=== PATIENT | male | born 1940 | race Caucasian/White ===

== ENCOUNTER 2017-04-17 17:44 | Observation (INO) | payer MEDICARE ==
[~2017-04-17] VITALS: Ht 172.7 cm; Wt 87.8 kg
[2017-04-17] VITALS (7 sets, daily range): BP systolic 84–131; BP diastolic 54–80; PULSE 72–100; RESP 18–20; TEMP 97.4–98.3; O2SAT 94–96
[2017-04-17] MEDS ORDERED: ATOR10TA15 PO (17:58)
[2017-04-17] MEDS ORDERED: AMLO5TAB2 PO (17:58)
[2017-04-17] MEDS ORDERED: CARV6.252 PO (17:58)
[2017-04-17] MEDS ORDERED: COUM5TAB PO (17:58)
[2017-04-17] MEDS ORDERED: ASPI81CH37 CHEW (17:58)
[2017-04-17] MEDS ORDERED: LISI2.5T3 PO (17:58)
[2017-04-17] MEDS ORDERED: SODIUM CHLORIDE 0.9% FLUSH 10 ML FLUSH IVF PRN (18:00)
--- NOTE | 2017-04-17 18:00 | PD ---
HPI Chief Complaint: Syncope/Near-Syncope Time Seen by Provider: 17:53 Travel History International Travel<30 days: No Contact w/Intl Traveler<30days: No Traveled to known affect area: No History of Present Illness HPI This is a 77 year old gentleman with history of atrial fibrillation, hyperlipidemia, who presents after having a near syncopal episode. The patient was out in the yard with his family. He is visiting here for his grandchildren' s graduation constitution party. He apparently started feeling clammy and sweaty and went inside and the symptoms did not resolve. He became extremely diaphoretic and felt as though he was given a pass out. 911 was all that and when they arrived , they found him in A. fib with rapid ventricular response. His heart rate was reportedly in the 130s and 140s. Paramedics delivered 20 mg of Cardizem and his rate rapidly went down into the 60s and 70s. The patient stated he felt much improved. They also gave him 1 L of IV fluid. He currently takes carvedilol and Coumadin as well as atorvastatin. The patient denied any chest pain, chest pressure. He stated he felt short of breath and clammy and lightheaded. [facility] Social History Tobacco Use: No Allergies-Medications (Allergen,Severity, Reaction): Coded Allergies: No Known Allergies (Unverified , 04/17/17) Reported Meds & Prescriptions Reported Meds & Active Scripts Active Reported Amlodipine (Amlodipine Besylate) 5 Mg Tab 5 Mg PO DAILY Lisinopril 2.5 Mg Tab 2.5 Mg PO DAILY Aspirin Low Dose (Aspirin) 81 Mg Chew 81 Mg CHEW DAILY Carvedilol 6.25 Mg Tab 6.25 Mg PO BID Atorvastatin (Atorvastatin Calcium) 10 Mg Tab 10 Mg PO HS Coumadin (Warfarin) 5 Mg Tab 5 Mg PO DAILY Review of Systems Except as stated in HPI: all other systems reviewed are Neg General / Constitutional: No: Fever, Chills HENT: No: Headaches, Lightheadedness, Neck Pain Cardiovascular: Positive: Palpitations, Irregular Rhythm, No: Chest Pain or Discomfort Respiratory: Positive: Shortness of Breath, No: Cough Gastrointestinal: No: Nausea, Vomiting, Abdominal Pain Musculoskeletal: Positive: Weakness (generalized during the episode), No: Pain Neurologic: Positive: Weakness (generalized during the episode), Dizziness ( during the episode, none now), No: Headache, Change in Mentation Physical Exam Narrative GENERAL: Well-developed well-nourished gentleman in no acute respiratory distress. SKIN: Focused skin assessment warm/dry. HEAD: Atraumatic. Normocephalic. EYES: No scleral icterus. No injection or drainage. ENT: No nasal bleeding or discharge. Mucous membranes pink and moist. NECK: Trachea midline. Supple CARDIOVASCULAR: Irregularly irregular with a rate in the 60s. No obvious murmurs appreciated. RESPIRATORY: No accessory muscle use. Clear to auscultation. Breath sounds equal bilaterally. GASTROINTESTINAL: Abdomen soft, non-tender, nondistended. MUSCULOSKELETAL: No obvious deformities. No clubbing. No cyanosis. No edema. NEUROLOGICAL: Awake and alert. No obvious cranial nerve deficits. Motor grossly within normal limits. Normal speech. PSYCHIATRIC: No delusional thought processes. No hallucinations. Data Data Last Documented VS Vital Signs Date Time Temp Pulse Resp B/P Pulse Ox O2 Delivery O2 Flow Rate FiO2 04/17/17 18:20 72 18 91/61 94 Room Air 84/54 04/17/17 18:07 98.3 Orders Electrocardiogram (04/17/17 17:53) Basic Metabolic Panel (Bmp) (04/17/17 17:53) Ckmb (Isoenzyme) Profile (04/17/17 17:53) Complete Blood Count With Diff (04/17/17 17:53) Magnesium (Mg) (04/17/17 17:53) Prothrombin Time / Inr (Pt) (04/17/17 17:53) Act Partial Throm Time (Ptt) (04/17/17 17:53) Troponin I (04/17/17 17:53) Chest, Single Ap (04/17/17 17:53) Ecg Monitoring (04/17/17 17:53) Bilateral Bp Monitoring (04/17/17 17:53) Iv Access Insert/Monitor (04/17/17 17:53) Oximetry (04/17/17 17:53) Oxygen Administration (04/17/17 17:53) Sodium Chloride 0.9% Flush (Ns Flush) (04/17/17 18:00) Admit Order (Ed Use Only) (04/17/17 18:54) CKMB (04/17/17 18:00) CKMB% (04/17/17 18:00) Labs Laboratory Tests Test 04/17/17 18:00 White Blood Count 7.4 TH/MM3 Red Blood Count 4.46 MIL/MM3 Hemoglobin 13.5 GM/DL Hematocrit 40.9 % Mean Corpuscular Volume 91.6 FL Mean Corpuscular Hemoglobin 30.4 PG Mean Corpuscular Hemoglobin 33.1 % Concent Red Cell Distribution Width 15.3 % Platelet Count 191 TH/MM3 Mean Platelet Volume 9.2 FL Neutrophils (%) (Auto) 73.9 % Lymphocytes (%) (Auto) 10.4 % Monocytes (%) (Auto) 8.7 % Eosinophils (%) (Auto) 6.8 % Basophils (%) (Auto) 0.2 % Neutrophils # (Auto) 5.5 TH/MM3 Lymphocytes # (Auto) 0.8 TH/MM3 Monocytes # (Auto) 0.6 TH/MM3 Eosinophils # (Auto) 0.5 TH/MM3 Basophils # (Auto) 0.0 TH/MM3 CBC Comment DIFF FINAL Differential Comment Prothrombin Time 19.5 SEC Prothromb Time International 1.7 RATIO Ratio Activated Partial 27.1 SEC Thromboplast Time Sodium Level 146 MEQ/L Potassium Level 4.2 MEQ/L Chloride Level 113 MEQ/L Carbon Dioxide Level 21.5 MEQ/L Anion Gap 12 MEQ/L Blood Urea Nitrogen 17 MG/DL Creatinine 1.27 MG/DL Estimat Glomerular Filtration 55 ML/MIN Rate Random Glucose 119 MG/DL Calcium Level 8.4 MG/DL Magnesium Level 2.2 MG/DL Total Creatine Kinase 951 U/L Creatine Kinase MB 12.3 NG/ML Creatine Kinase MB % 1.3 % Troponin I LESS THAN 0.02 NG/ML [facility] Medical Decision Making Medical Screen Exam Complete: Yes Emergency Medical Condition: Yes Differential Diagnosis A. fib with RVR versus dehydration versus metabolic arrangement versus ACS Narrative Course This is a 77-year-old male with a history of atrial fibrillation, who presents via EMS after having an episode of rapid A. fib. Patient was at a family function when he started becoming short of breath and became pale, cool and diaphoretic. When EMS arrived, they found him in A. fib with rapid ventricular response. He reported his pulse was in the 130s 140s. The patient was given 20 mg of diltiazem. When the patient arrived to the emergency department, he was comfortable and stated he felt much better. Labs show no evidence of acute heart damage. The patient was noted to be subtherapeutic on his Coumadin level. He was given 5 mg of Coumadin. The patient was also noted to be dehydrated and hadn't mild rhabdomyolysis. The patient is not from this area and given all of the findings, recommendation was that he be admitted for observation. The patient was amenable to this plan. He did have mild hypotension as well and was given 2 L of IVD fluid. The case was discussed with Dr. Chong, who agreed to bring the patient under observation to the hospitalist service. Diagnosis Primary Impression: Atrial fibrillation with RVR Additional Impressions: Hypotension Subtherapeutic international normalized ratio (INR) Dehydration Near syncope Admitting Information Admitting Physician Requests: Observation Prieto Babb MD April 17, 2017 18:00
--- NOTE | 2017-04-17 18:15 | RADRPT ---
EXAM DATE/TIME: 04/17/2017 18:10 [facility] COMPARISON: No previous studies available for comparison. INDICATIONS : BECAME WEAK LIGHTHEADED, SYNCOPE MEDICAL HISTORY : UNKNOWN SURGICAL HISTORY : Inguinal hernia repair. Rotator cuff ENCOUNTER: Initial ACUITY: 1 day PAIN SCORE: 2/10 LOCATION: Bilateral chest FINDINGS: The lungs are clear. The heart is minimally enlarged. The pulmonary vascularity is normal. There is n o evidence for infiltrate or failure. The portion of the bony skeleton visualized is unremarkable. CONCLUSION: Compensated cardiomegaly otherwise negative Maldonado Way MD FACR Board Certified Radiologist. This report was verified electronically.
[2017-04-17 18:27] LABS: AUTOMATED NEUTROPHIL # 5.5 TH/MM3 (1.8-7.7); BASOPHIL % 0.2 % (0.0-2.0); EOSINOPHIL # 0.5 TH/MM3 (0-0.4); EOSINOPHIL % 6.8 % (0.0-4.0); HEMATOCRIT 40.9 % (39.0-51.0); HEMO FLAGS DIFF FINAL; LYMPH % 10.4 % (9.0-44.0); LYMPHOCYTE # 0.8 TH/MM3 (1.0-4.8); MEAN CELL VOLUME 91.6 FL (80.0-100.0); MEAN CORPUSCULAR HEMOGLOBIN 30.4 PG (27.0-34.0); MEAN CORPUSCULAR HGB CONC 33.1 % (32.0-36.0); MONO % 8.7 % (0.0-8.0); NEUT % 73.9 % (16.0-70.0); PLATELET COUNT 191 TH/MM3 (150-450); RED BLOOD COUNT 4.46 MIL/MM3 (4.50-5.90); RED CELL DISTRIBUTION WIDTH 15.3 % (11.6-17.2); WHITE BLOOD COUNT 7.4 TH/MM3 (4.0-11.0)
[2017-04-17 18:37] LABS: APTT (PATIENT) 27.1 SEC (24.3-30.1); INTERNATIONAL NORMALIZED RATIO 1.7 RATIO; PROTHROMBIN TIME - PATIENT 19.5 SEC (9.8-11.6)
[2017-04-17] MEDS ORDERED: WARFARIN SOD 5 MG TAB PO ONE (19:00)
[2017-04-17 19:04] LABS: ANION GAP 12 MEQ/L (5-15); BICARBONATE 21.5 MEQ/L (21.0-32.0); BLOOD UREA NITROGEN 17 MG/DL (7-18); CHLORIDE 113 MEQ/L (98-107); CREATINE KINASE 951 U/L (39-308); GLOMERULAR FILTRATION RATE 55 ML/MIN (>89); MAGNESIUM 2.2 MG/DL (1.5-2.5); POTASSIUM 4.2 MEQ/L (3.5-5.1); SODIUM (NA) 146 MEQ/L (136-145)
[2017-04-17] MEDS ORDERED: MORPHINE SULFATE 4 MG/ML INJ IV PRN (19:15)
[2017-04-17] MEDS ORDERED: MAGNESIUM HYDROXIDE SUSP 30 ML CUP PO PRN (19:15)
[2017-04-17] MEDS ORDERED: BISACODYL 10 MG SUPP RECTAL PRN (19:15)
[2017-04-17] MEDS ORDERED: ONDANSETRON HCL 4 MG/2 ML VIAL IVP PRN (19:15)
[2017-04-17] MEDS: SODIUM CHLOR 0.9% 1000 ML INJ 1,000 ML IV SCH (19:15)
[2017-04-17] MEDS ORDERED: ACETAMINOPHEN/HYDROcodone 325 MG/5 MG TAB PO PRN (19:15)
[2017-04-17] MEDS ORDERED: SODIUM CHLORIDE 0.9% FLUSH 10 ML FLUSH IV FLUSH PRN (19:15)
[2017-04-17] MEDS ORDERED: ACETAMINOPHEN 325 MG TAB PO PRN (19:15)
[2017-04-17] MEDS ORDERED: LACTULOSE SYRUP 20 GM/30 ML CUP PO PRN (19:15)
[2017-04-17] MEDS ORDERED: SENNOSIDES 8.6 MG TAB PO PRN (19:15)
[2017-04-17 19:16] LABS: CKMB 12.3 NG/ML (0.5-3.6)
--- NOTE | 2017-04-17 19:19 | HHI.HP ---
HPI [facility] Primary Care Physician Non-Staff Admission Diagnosis Near syncope, atrial fibrillation with RVR Diagnoses: (1) Near syncope Diagnosis: Principal (2) Atrial fibrillation with RVR Diagnosis: Principal (3) Hypotension Diagnosis: Principal (4) Dehydration Diagnosis: Principal (5) Rhabdomyolysis Diagnosis: Principal (6) Subtherapeutic international normalized ratio (INR) Diagnosis: Principal Travel History International Travel<30 Days: No Contact w/Intl Traveler <30 Da: No Traveled to Known Affected Are: No History of Present Illness This is a 77-year-old male with a PMH of HTN, A. fib on Coumadin and Hyperlipidemia was brought to the ER by EMS secondary to near syncopal episode. Per patient he was at his son's house watching a slide show of his grandsons graduation when he had acute episode of dizziness and near syncopal episode. No actual LOC reported. Per , patient had been working outside on his truck for several hours in the sun prior to near syncopal event. No h/o similar symptoms in the past. Upon EMS arrival, pt noted to be in A-fib w/ RVR , HR 140's, s/p Cardizem 20mg IV x1, now HR 70's. No recent changes to medications, reports compliance. Follows w/ [facility] in [place]/ [place], last Echo within 1yr reportedly normal per patient. On arrival, BP 131 /80, HR 79, O2 sat 96% on RA, Afebrile. While in the ER, episodes of hypotension responsive to IVF, BP 184/54, HR 72 s/p IVF w/ repeat BP 114/73, HR 92. CBC essentially unremarkable. GFR 55. Calcium 8.4. CPK 951. Troponin negative. INR mildly subtherapeutic at 1.7. S/p Coumadin 5mg PO in ER. CXR with compensated cardiomegaly, no acute findings. Patient currently asymptomatic with no complaints. Review of Systems Except as stated in HPI: all other systems reviewed are Neg ROS: 14 point review of systems otherwise negative. Past Family Social History Past Medical History PMH: HTN, A. fib on Coumadin and Hyperlipidemia Past Surgical History PAST SURGICAL HISTORY: Hernia Repair, Rotator Cuff Surgery Allergies: Coded Allergies: No Known Allergies (Unverified , 04/17/17) Family History PAST FAMILY HISTORY: Reviewed. No h/o DM or CAD Social History PAST SOCIAL HISTORY: Negative for alcohol, tobacco or drugs. Physical Exam Vital Signs Vital Signs Date Time Temp Pulse Resp B/P Pulse Ox O2 Delivery O2 Flow Rate FiO2 04/17/17 19:05 79 18 95/61 94 Room Air 04/17/17 18:20 72 18 91/61 94 Room Air 84/54 04/17/17 18:07 98.3 72 18 92/61 95 Room Air 04/17/17 18:07 95 Room Air 04/17/17 18:07 98.3 72 18 92/61 95 Room Air 04/17/17 18:06 72 18 04/17/17 17:49 97.8 79 18 131/80 96 Physical Exam PE: GENERAL: Extremely pleasant elderly white male, appears younger than stated age , in no acute distress. at bedside. HEENT: PERRLA, EOMI. No scleral icterus or conjunctival pallor. No lid lag or facial droop. CARDIOVASCULAR: Irregularly irregular, rate controlled, HR 60-70. No obvious murmurs to auscultation. No chest tenderness to palpation. RESPIRATORY: No obvious rhonchi or wheezing. Clear to auscultation. Breath sounds equal bilaterally. GASTROINTESTINAL: Abdomen soft, non-tender, nondistended. BS normal. MUSCULOSKELETAL: Extremities without clubbing, cyanosis, or edema. No obvious deformities. NEUROLOGICAL: Awake, alert and oriented x4. No focal neurologic deficits. Moving both upper and lower extremities spontaneously. Laboratory Laboratory Tests Test 04/17/17 18:00 White Blood Count 7.4 Red Blood Count 4.46 Hemoglobin 13.5 Hematocrit 40.9 Mean Corpuscular Volume 91.6 Mean Corpuscular Hemoglobin 30.4 Mean Corpuscular Hemoglobin 33.1 Concent Red Cell Distribution Width 15.3 Platelet Count 191 Mean Platelet Volume 9.2 Neutrophils (%) (Auto) 73.9 Lymphocytes (%) (Auto) 10.4 Monocytes (%) (Auto) 8.7 Eosinophils (%) (Auto) 6.8 Basophils (%) (Auto) 0.2 Neutrophils # (Auto) 5.5 Lymphocytes # (Auto) 0.8 Monocytes # (Auto) 0.6 Eosinophils # (Auto) 0.5 Basophils # (Auto) 0.0 CBC Comment DIFF FINAL Differential Comment Prothrombin Time 19.5 Prothromb Time International 1.7 Ratio Activated Partial 27.1 Thromboplast Time Sodium Level 146 Potassium Level 4.2 Chloride Level 113 Carbon Dioxide Level 21.5 Anion Gap 12 Blood Urea Nitrogen 17 Creatinine 1.27 Estimat Glomerular Filtration 55 Rate Random Glucose 119 Calcium Level 8.4 Magnesium Level 2.2 Total Creatine Kinase 951 Creatine Kinase MB 12.3 Creatine Kinase MB % 1.3 Troponin I LESS THAN 0.02 Result Diagram: 04/17/17 1800 04/17/17 1800 Assessment and Plan Problem List: (1) Near syncope ICD Code: R55 Status: Acute (2) Atrial fibrillation with RVR ICD Code: I48.91 Status: Acute (3) Dehydration ICD Code: E86.0 Status: Acute (4) Hypotension ICD Code: I95.9 Status: Acute (5) Rhabdomyolysis ICD Code: M62.82 Status: Acute (6) Subtherapeutic international normalized ratio (INR) ICD Code: R79.1 Status: Acute Assessment and Plan A/P: 1. Near Syncope: Acute onset of dizziness w/ near syncopal event. Likely multifactorial-related to dehydration, hypotension and episode of A-fib w/ RVR. Now resolved. IVF for hydration. Admit to CDU for Observation, telemetry. Initial trop negative, will check serial cardiac enzymes for trend. 2. A-fib w/ RVR: h/o A-fib, episode of RVR w/ HR 140's, s/p Cardizem 20mg IV by EMS, now rate-controlled, HR 60-70's. Follows w/ [facility] in [place], last Echo <1yr reportedly normal per patient. IVF for hydration, will monitor for recurrent episode. Hold further meds for now in light of hypotension. 3. Hypotension: BP 131/80, HR 79 on arrival, while in ER, BP 84/54, HR 72 s/p IVF w/ good response, BP currently 114/73, HR 92. Will monitor closely. 4. Dehydration: GFR 55, IVF for hydration, repeat labs in am. 5. Rhabdomyolysis: CPK 951, IVF, will check serial CPK for trend. 6. Subtherapeutic INR: INR 1.7, on Coumadin 5mg po, compliant w/ meds, s/p Coumadin 5mg po in ER, will recheck INR in am, resume Coumadin. 7. DVT Prophylaxis: On Coumadin as above. 8. Social work for d/c planning as needed. 9. Case discussed w/ ER physician at length. Luaryn Mcmanus MD April 17, 2017 19:19
[2017-04-17] MEDS: DOCUSATE SODIUM 50 MG/SENNA 8.6 MG TAB PO SCH (20:05)
[2017-04-17] MEDS: SODIUM CHLORIDE 0.9% FLUSH 10 ML FLUSH IV FLUSH SCH (21:00)
[2017-04-17] MEDS ORDERED: ATORVASTATIN 10 MG TAB PO SCH (21:00)
[2017-04-18] VITALS: BP 116/84; PULSE 92; RESP 20; TEMP 97.7; O2SAT 96
[2017-04-18 01:32] LABS: CREATINE KINASE 756 U/L (39-308)
[2017-04-18 01:45] LABS: CKMB 8.5 NG/ML (0.5-3.6)
[2017-04-18 04:00] VITALS: BP 118/75; PULSE 95; RESP 20; TEMP 97.3; O2SAT 94
[2017-04-18] MEDS: SODIUM CHLOR 0.9% 1000 ML INJ 1,000 ML IV SCH (06:03)
[2017-04-18 07:15] LABS: AUTOMATED NEUTROPHIL # 3.9 TH/MM3 (1.8-7.7); BASOPHIL % 0.4 % (0.0-2.0); EOSINOPHIL # 0.2 TH/MM3 (0-0.4); EOSINOPHIL % 3.2 % (0.0-4.0); HEMO FLAGS DIFF FINAL; LYMPH % 17.9 % (9.0-44.0); MEAN CELL VOLUME 91.4 FL (80.0-100.0); MEAN CORPUSCULAR HEMOGLOBIN 31.4 PG (27.0-34.0); MEAN CORPUSCULAR HGB CONC 34.3 % (32.0-36.0); NEUT % 67.5 % (16.0-70.0); PLATELET COUNT 178 TH/MM3 (150-450); RED BLOOD COUNT 4.16 MIL/MM3 (4.50-5.90); WHITE BLOOD COUNT 5.8 TH/MM3 (4.0-11.0)
[2017-04-18 07:19] LABS: INTERNATIONAL NORMALIZED RATIO 1.7 RATIO; PROTHROMBIN TIME - PATIENT 19.6 SEC (9.8-11.6)
[2017-04-18 07:37] LABS: ALT (GPT) 21 U/L (12-78); ANION GAP 12 MEQ/L (5-15); AST (GOT) 16 U/L (15-37); BICARBONATE 23.5 MEQ/L (21.0-32.0); BLOOD UREA NITROGEN 14 MG/DL (7-18); CHLORIDE 112 MEQ/L (98-107); GLOMERULAR FILTRATION RATE 84 ML/MIN (>89); POTASSIUM 4.2 MEQ/L (3.5-5.1); SODIUM (NA) 147 MEQ/L (136-145)
[2017-04-18 07:41] LABS: ALKALINE PHOSPHATASE 33 U/L (45-117); CREATINE KINASE 701 U/L (39-308); TOTAL BILIRUBIN ADULT 0.4 MG/DL (0.2-1.0)
[2017-04-18 07:53] LABS: CKMB 7.4 NG/ML (0.5-3.6)
[2017-04-18 08:00] VITALS: BP 130/88; PULSE 91; RESP 20; TEMP 97.7; O2SAT 96
[2017-04-18] MEDS ORDERED: CARVEDILOL 6.25 MG TAB PO SCH (09:00)
[2017-04-18] MEDS ORDERED: WARFARIN SOD 5 MG TAB PO SCH ×2 (09:00→16:00)
[2017-04-18] MEDS ORDERED: ASPIRIN 81 MG CHEW TAB CHEW SCH (09:00)
[2017-04-18] MEDS: DOCUSATE SODIUM 50 MG/SENNA 8.6 MG TAB PO SCH (09:41)
[2017-04-18] MEDS: SODIUM CHLORIDE 0.9% FLUSH 10 ML FLUSH IV FLUSH SCH (09:42)
--- NOTE | 2017-04-18 09:42 | HHI.PR ---
Subjective Remarks Follow-up Atrial fibrillation rapid ventricular response/near syncope/ dehydration 04/18/17-patient seen and examined, currently rate controlled and BP within normal limits. No syncopal episode overnight. and son by the bedside. Taking by mouth without any complication nausea and vomiting Objective Vitals Vital Signs Date Time Temp Pulse Resp B/P Pulse Ox O2 Delivery O2 Flow Rate FiO2 04/18/17 08:00 97.7 91 20 130/88 96 04/18/17 04:00 Room Air 04/18/17 04:00 97.3 95 20 118/75 94 04/18/17 00:00 97.7 92 20 116/84 96 04/18/17 00:00 Room Air 04/17/17 21:11 100 04/17/17 20:15 97.4 92 20 111/71 95 04/17/17 20:00 Room Air 04/17/17 19:53 92 18 114/73 95 04/17/17 19:05 79 18 95/61 94 Room Air 04/17/17 18:20 72 18 91/61 94 Room Air 84/54 04/17/17 18:07 98.3 72 18 92/61 95 Room Air 04/17/17 18:07 95 Room Air 04/17/17 18:07 98.3 72 18 92/61 95 Room Air 04/17/17 18:06 72 18 04/17/17 17:49 97.8 79 18 131/80 96 I/O 04/17/17 04/17/17 04/17/17 04/18/17 04/18/17 04/18/17 07:00 15:00 23:00 07:00 15:00 23:00 Intake Total 121 ml 1094 ml Output Total 500 ml Balance 121 ml 594 ml Intake Oral 220 ml IV Total 121 ml 874 ml Output Urine Total 500 ml # Bowel Movements 0 Result Diagram: 04/18/17 0545 04/18/17 0545 Imaging Last Impressions Chest X-Ray 04/17/17 6734 Signed Impressions: Service Date/Time: Monday, April 17, 2017 18:10 - CONCLUSION: Compensated cardiomegaly otherwise negative Maldonado Way MD FACR Objective Remarks GENERAL: NAD SKIN: Warm and dry. HEAD: Normocephalic. EYES: No scleral icterus. No injection or drainage. NECK: Supple, trachea midline. No JVD or lymphadenopathy. CARDIOVASCULAR: irreg Regular rate and rhythm without murmurs, gallops, or rubs. RESPIRATORY: Breath sounds equal bilaterally. No accessory muscle use. GASTROINTESTINAL: Abdomen soft, non-tender, nondistended. MUSCULOSKELETAL: No cyanosis, or edema. BACK: Nontender without obvious deformity. No CVA tenderness. A/P Problem List: (1) Near syncope ICD Code: R55 Status: Resolved (2) Atrial fibrillation with RVR ICD Code: I48.91 Status: Acute (3) Dehydration ICD Code: E86.0 Status: Resolved (4) Hypotension ICD Code: I95.9 Status: Resolved (5) Rhabdomyolysis ICD Code: M62.82 Status: Acute (6) Subtherapeutic international normalized ratio (INR) ICD Code: R79.1 Status: Acute Assessment and Plan 77-year-old man with 1. Near Syncope: Acute onset of dizziness w/ near syncopal event. Likely multifactorial-related to dehydration, hypotension and episode of A-fib w/ RVR. Now resolved. 2. A-fib w/ RVR: h/o A-fib, episode of RVR w/ HR 140's, s/p Cardizem 20mg IV by EMS, now rate-controlled, HR 60-70's. Follows w/ [employer] in [place], last Echo <1yr reportedly normal per patient. Will resume Coreg with holding parameters and continue Coumadin 3. Hypotension: Resolved with IV fluid hydration, will resume Coreg now. Discussed with both patient and family about the reintroduction of other oral antihypertensive medications accordingly based on blood pressure trend. Patient advised to keep a BP log 4. Dehydration: Resolved with IV fluid hydrations 5. Rhabdomyolysis: Improving with IV fluid hydration 6. Subtherapeutic INR: INR 1.7, on Coumadin 5mg po, compliant w/ meds, continue Coumadin and monitor INR. Patient also advised to talk to PCP regarding possible new OAC ie Eliquis versus Xarelto for anticoagulation 7. DVT Prophylaxis: On Coumadin as above. Discharge Planning Discharge patient to home Condition on discharge: Improved Coumadin diet/healthy Diet as tolerated Ad Sol activity Rx written:none Follow-up with primary care physician in one week Barron Amaya MD April 18, 2017 09:42
--- NOTE | 2017-04-18 15:20 | EKG ---
Date Performed: 04/17/2017 Time Performed: 17:53:24 PTAGE: 77 years EKG: ATRIAL FIBRILLATION MARKED LEFT AXIS DEVIATION ABNORMAL ECG NO PREVIOUS TRACING DOCTOR: Dean Wilson Interpretating Date/Time 04/18/2017 15:19:11
== END 2017-04-18 12:17 | disposition home or self-care (01) ==
LOC: NEPE 17:44 → NEDA 18:56 → UNDOADMOB 18:56 → N04A 20:12 → NEDA 20:12 → UNDODISOB 04-18 12:17
PROVIDERS: ADMIT Hospitalist; ATTEND Hospitalist
DX: R55 Syncope and collapse (principal); I95.9 Hypotension, unspecified; E86.0 Dehydration; I48.91 Unspecified atrial fibrillation; M62.82 Rhabdomyolysis; I10 Essential (primary) hypertension; E78.5 Hyperlipidemia, unspecified; Z79.01 Long term (current) use of anticoagulants
CPT/HCPCS: 71010; 80048; 80053; 82550; 82552; 83735; 84484; 85025; 85610; 85730; 93005; 99285; G0378; J7030